=== PATIENT | female | born 1945 | race Caucasian/White ===

== ENCOUNTER → 2017-03-15 | Outpatient (CLI) | payer MEDICARE ==
[~2017-03-15] MED LIST: CYCL5TAB PO; DARV PO; [UNRECOGNIZED DRUG - OTHER]
--- NOTE | 2017-03-21 11:19 | RSPPFT ---
DATE OF PROCEDURE: 03/15/17 COMMENTS: VOLUMES DYNAMIC: FVC and FEV1 normal. STATIC: RV, TLC and FRC normal. FLOWS: FEV1% mildly reduced; FEF 25-75 moderately reduced. DIFFUSION: Normal. FLOW VOLUME LOOP: Pattern of variable intrathracic airways obstruction. IMPRESSION: Mild obstructive ventilatory defect with no reduction in diffusion and no significant hyperinflation. Airways resistance is increased but there is minimal change post-bronchodilator.
== END ==
LOC: PHRSP 08:14
PROVIDERS: ATTEND Internal Medicine
DX: J44.9 Chronic obstructive pulmonary disease, unspecified (principal)
CPT/HCPCS: 94060; 94620; 94726; 94729

== ENCOUNTER 2017-04-07 07:44 | Day surgery (SDC) | payer MEDICARE ==
[~2017-04-07] VITALS: Ht 160 cm; Wt 63.6 kg
[2017-04-07] VITALS (8 sets, daily range): BP systolic 100–143; BP diastolic 51–82; PULSE 67–92; RESP 16–20; TEMP 98.1–98.4; O2SAT 91–97
[2017-04-07] MEDS ORDERED: VERA120T3 PO (08:05)
[2017-04-07] MEDS ORDERED: ATOR40TA16 PO (08:05)
[2017-04-07] MEDS ORDERED: DICL75TA PO (08:05)
[2017-04-07] MEDS ORDERED: LISI10TA PO (08:05)
[2017-04-07] MEDS ORDERED: SODIUM CHLOR 0.9% 1000 ML IV SCH (08:15)
[2017-04-07] MEDS ORDERED: LIDOCAINE 1%/EPINEPHrine 1:100,000 SOLN 20 ML VIAL ONE (09:00)
[2017-04-07] MEDS ORDERED: MIDAZOLAM HCL 2 MG/2 ML VIAL ONE (09:21)
--- NOTE | 2017-04-07 10:42 | PD.RAD ---
Post CT Procedure Prog Note Pre Procedure Diagnosis: (1) Pulmonary nodule, left Post Procedure Diagnosis: (1) Pulmonary nodule, left Procedure Date: Apr 07, 2017 Supervising Radiologist: Waqas Chu Anesthesia: Local, Analgesia, Conscious Sedation Plan of Activity Patient to Unit: R[facility]U Patient Condition: Good See PACS Report for procedural detail/treatment Biopsy Imaging Guidance: CT Side: Left Biopsy Procedure: Lung Specimen: Core Biopsy Findings: Single 20 gauge core. Touch prep in room showed cells present. Due to difficult access, only single sample placed in formalin for further eval. Waqas Chu MD Apr 07, 2017 10:42
[2017-04-07] MEDS ORDERED: oxyCODONE/ACETAMINOPHEN 5 MG/325 MG TAB PO PRN (10:45)
--- NOTE | 2017-04-07 11:32 | RADRPT ---
EXAM DATE/TIME: 04/07/2017 10:48 [facility] COMPARISON: No previous studies available for comparison. INDICATIONS : Post left lung biopsy MEDICAL HISTORY : None. SURGICAL HISTORY : None. ENCOUNTER: Initial ACUITY: 1 day PAIN SCORE: 6/10 LOCATION: chest FINDINGS: A single frontal expiratory view of the chest was performed. There is no evidence of pneumothorax fo llowing left-sided CT guided biopsy. Nodular opacity remains evident in the left upper lobe. Right lung is clear. Heart and mediastinal structures are unremarkable. CONCLUSION: No evidence of pneumothorax status post left lung biopsy. Gaudencio Ruiz MD on April 07, 2017 at 11:18 Board Certified Radiologist. This report was verified electronically.
--- NOTE | 2017-04-07 13:43 | RADRPT ---
EXAM DATE/TIME: 04/07/2017 12:54 [facility] COMPARISON: No previous studies available for comparison. INDICATIONS : Post left lung biopsy. MEDICAL HISTORY : None. SURGICAL HISTORY : None. ENCOUNTER: Initial ACUITY: 1 day PAIN SCORE: 1/10 LOCATION: Left chest FINDINGS: A single view of the chest demonstrates the lungs to be symmetrically aerated with the recently biops ied nodule in the left upper lung adjacent to the aortic arch. No pneumothorax. CONCLUSION: 1. No pneumothorax post biopsy. 2. Pulmonary nodule left upper lobe adjacent to the aortic arch. Waqas Chu MD on April 07, 2017 at 13:37 Board Certified Radiologist. This report was verified electronically.
--- NOTE | 2017-04-07 15:38 | RADRPT ---
EXAM DATE/TIME: 04/07/2017 09:52 [facility] COMPARISON: No previous studies available for comparison. INDICATIONS : Left lung mass. SEDATION TIME: 30 minutes BIOPSY SITE: Left chest MEDICATION(S): 1.) 3 mg midazolam (Versed) IV 2.) 150 mcg fentanyl (Sublimaze) IV DEVICE(S): 1.) 18 gauge Sims blunt needle 10cm 2.) 20 gauge Temno core biopsy needle 20cm MEDICAL HISTORY : Hypertension. Chronic obstructive pulmonary disease. SURGICAL HISTORY : Hysterectomy. ENCOUNTER: Initial ACUITY: 1 day PAIN SCORE: 0/10 LOCATION: Left chest A total of one core specimen(s) were obtained and sent to the laboratory for pathologic evaluation. PROCEDURE: 1. CT guided lung biopsy. 2. Conscious sedation with continuous EKG and oximetry monitoring. Prior to the procedure informed consent was obtained. Any appropriate prior imaging studies were rev iewed. Using automated exposure control and adjustment of the mA and/or kV according to patient size, radiation dose was kept as low as reasonably achievable to obtain optimal diagnostic quality images. DICOM format image data is available electronically for review and comparison. The site was prepped in a sterile fashion. Full sterile technique was used, including cap, mask, zara rile gloves and gown and a large sterile sheet. Hand hygiene and 2% chlorhexidine and/or betadine/al cohol prep was utilized per protocol for cutaneous antisepsis. The skin and subcutaneous tissues wer e infiltrated with local anesthetic solution. With CT guidance the previously identified target was localized. 18 gauge Sims blunt needle was ad vanced to the lesion mentioned. Biopsy was performed using the prescribed needle as above. Touch pre p was performed on the sample in the CT room with the [employer] in attendance. Adequate hemostasis was obtained with compression at the puncture site. Follow-up CT scan reveals no pneumothorax. Conscious sedation was performed with the prescribed dosages and duration as above in the presence of an independent trained radiology nurse to assist in the monitoring of the patient. EKG and oximetry remained stable throughout the procedure. The patient tolerated the procedure well and there were no complications. The patient was sent to Radiology Outpatient Unit in stable condition. CONCLUSION: Uncomplicated CT guided biopsy. Waqas Chu MD on April 07, 2017 at 15:24 Board Certified Radiologist. This report was verified electronically.
== END 2017-04-07 14:36 | disposition home or self-care (01) ==
LOC: HRAD 07:44 → HRIP 07:47 → HRAD 14:36
PROVIDERS: ATTEND Internal Medicine
DX: R91.1 Solitary pulmonary nodule (principal); J44.9 Chronic obstructive pulmonary disease, unspecified; I10 Essential (primary) hypertension; F17.200 Nicotine dependence, unspecified, uncomplicated
CPT/HCPCS: 32405; 71010; 77012; 88305; 88333; 88341; 88342; J2250; J3010; J7030

== ENCOUNTER → 2017-04-29 | Outpatient (CLI) | payer MEDICARE ==
[~2017-04-29] MED LIST changes: +ATOR40TA16 PO; -CYCL5TAB PO; -DARV PO; +DICL75TA PO; +LISI10TA PO; +VERA120T3 PO; -[UNRECOGNIZED DRUG - OTHER]
[2017-04-29 14:06] LABS: HEMATOCRIT 34.3 % (35.0-46.0); HEMOGLOBIN 11.6 GM/DL (11.6-15.3); MEAN CELL VOLUME 95.3 FL (80.0-100.0); MEAN CORPUSCULAR HEMOGLOBIN 32.3 PG (27.0-34.0); MEAN CORPUSCULAR HGB CONC 33.9 % (32.0-36.0); MEAN PLATELET VOLUME 9.7 FL (7.0-11.0); PLATELET COUNT 233 TH/MM3 (150-450); RED CELL DISTRIBUTION WIDTH 13.6 % (11.6-17.2); WHITE BLOOD COUNT 9.1 TH/MM3 (4.0-11.0)
[2017-04-29 14:19] LABS: INTERNATIONAL NORMALIZED RATIO 0.9 RATIO; PROTHROMBIN TIME - PATIENT 9.6 SEC (9.8-11.6)
[2017-04-29 14:30] LABS: BICARBONATE 23.8 MEQ/L (21.0-32.0); CALCIUM 8.8 MG/DL (8.5-10.1); CREATININE 1.03 MG/DL (0.50-1.00)
--- NOTE | 2017-04-30 12:36 | EKG ---
Date Performed: 04/29/2017 Time Performed: 13:04:56 PTAGE: 71 years EKG: Sinus rhythm Since previous tracing, no significant change noted Normal ECG PREVIOUS TRACING : 01/15/2004 08.30 DOCTOR: Temo Vasques Interpretating Date/Time 04/30/2017 12:35:39
== END ==
LOC: CPRE 12:30
PROVIDERS: ATTEND Internal Medicine
DX: Z01.812 Encounter for preprocedural laboratory examination (principal); Z01.810 Encounter for preprocedural cardiovascular examination; R91.1 Solitary pulmonary nodule
CPT/HCPCS: 36415; 80048; 85027; 85610; 85730; 93005

== ENCOUNTER 2017-05-03 12:33 | Day surgery (SDC) | payer MEDICARE ==
--- NOTE | 2017-04-28 11:15 | MB ---
cc: RACQUEL FORRESTER D.O., R. STEVEN DATE OF CONSULTATION: 04/28/2017 REASON FOR CONSULTATION Bronchoscopy scheduled for next Tuesday. HISTORY OF PRESENT ILLNESS Ms. Jovel is a 71-year-old white female whom I saw in February with a new nodule that was identified during an emergency room visit for neck pain. Subsequently, a biopsy in March revealed adenocarcinoma and a followup PET CT revealed uptake in the nodule itself in the lung but also in the left paratracheal region highly suspicious for metastatic disease. She had pulmonary functions which revealed mild airways obstruction. She has been a smoker most of her adult life, was smoking about a half-a-pack per day when I met her and now is smoking only occasionally. I saw her back in the office today to discuss an ultrasound-guided biopsy of that paratracheal lymph node and she is agreeable to proceed. Currently having no symptoms referable to this. No unusual cough. No chest pain. No hemoptysis and no shortness of breath. PAST MEDICAL HISTORY 1. Hypertension. 2. Prior hysterectomy. 3. Lumbosacral spine surgery. No prior cardiovascular history or history of stroke. ALLERGIES LEVAQUIN AND IBUPROFEN. MEDICATIONS 1. Verapamil. 2. A statin. 3. Digoxin. 4. Lisinopril. FAMILY HISTORY Father of alcoholism. Mother is alive at 89. Three sisters one of whom has heart disease, a son who has heart disease. Three daughters in good health. SOCIAL HISTORY living with her of 48 years. She has been in the [employer] business for over 50 years. She has about 50 pack-year smoking history. Drinks wine daily, a glass or two. Three cats at home and a dog. REVIEW OF SYSTEMS Review of systems otherwise negative. PHYSICAL EXAMINATION VITAL SIGNS: Temperature is 97, 130/60, pulse 86, RR 18, sat 96% on room air. HEENT: Sclerae are anicteric. Pharynx is clear. NECK: She has no adenopathy in the neck or supraclavicular region. CHEST: Her chest is entirely clear. No wheezes or rales. No congestion. HEART: Regular rhythm. No harsh murmur. No peripheral edema or cyanosis. ASSESSMENT Ms. Jovel has a left upper lobe adenocarcinoma diagnosed by needle biopsy but also has a positive lymph node on PET scan in the left paratracheal region suspicious for metastatic disease. I have reviewed bronchoscopy with EBUS with her and explained the rationale and why it is important to try to see if this lymph node contains malignant cells. I have described this procedure in simple terms so that she understands what it involves. We also discussed potential for complications including although not limited to anesthetic complications, bleeding or pneumothorax. There is certainly also the possibility that the test will not provide definitive information and additional studies might be needed. We also discussed the possibility of second opinion, she had raised that on a former visit but at this point she would like to proceed here locally based on the information discussed above. Further diagnostic and/or therapeutic intervention will depend on results of this bronchoscopy. R. MD AURELIA Ferreira/GETACHEW /10:31 AM /10:42 AM
[~2017-05-03] VITALS: Ht 160 cm; Wt 62.3 kg
[~2017-05-03 12:33] MED LIST changes: +GLYCOPYRROLATE 1 MG/5 ML SYRINGE IV PUSH ONE; +LIDOCAINE HCL 1% PF 5 ML SYRINGE OTHER ONE; +NEOSTIGMINE 5 MG/5 ML SYRINGE IV PUSH ONE; +ONDANSETRON HCL 4 MG/2 ML VIAL IV ONE; +PHENYLEPH/NS 1000 MCG/10 ML SYR IV ONE; +PROPOFOL 200 MG/20 ML AMP IV ONE; +ROCURONIUM INJ 50 MG/5 ML SYRINGE IV PUSH ONE; +SUCCINYLCHOLINE CHLORIDE 100 MG/5 ML SYRINGE IV PUSH ONE
[2017-05-03 12:53] VITALS: BP 120/66; PULSE 95; RESP 20; TEMP 98.9; O2SAT 95
[2017-05-03] MEDS ORDERED: RESP: ALBUTEROL CONC 2.5 MG/0.5 ML NEB ONE (14:31)
[2017-05-03] MEDS ORDERED: RESP: ALBUTEROL 2.5 MG/IPRATROPIUM 0.5 MG NEB (PRN) NEB (16:45)
[2017-05-03 17:08] VITALS: TEMP 98.1
[2017-05-03 17:10] VITALS: BP 137/66; PULSE 95; RESP 18; O2SAT 95
[2017-05-03] MEDS ORDERED: SODIUM CHLORIDE 0.9% 1000 ML IV SCH (17:15)
[2017-05-03] MEDS ORDERED: DO NOT ADM ANY ANTICOAGULANT DRUGS PRN (17:15)
[2017-05-03 17:40] VITALS: BP 114/66; PULSE 89; RESP 18; O2SAT 93
--- NOTE | 2017-05-03 19:14 | MP ---
cc: BRITTA HALE DATE OF SURGERY 05/03/2017 PROCEDURE Bronchoscopy. INDICATION Lung cancer, possible mediastinal lymph node metastasis. After informed consent was obtained, the patient underwent diagnostic bronchoscopy with general anesthesia. DETAILS Examination of the trachea and mainstem bronchi was normal. She previously had needle aspiration of the left upper lobe lesion which was malignant so no further peripheral inspection was done. Utilizing ultrasound guidance left paratracheal area was identified and a single enlarged lymph node was seen. Four transtracheal passes were made into the lesion and submitted for cytology. There was minimal bleeding. She tolerated the procedure well without apparent complication. She is being transferred back to recovery. R. MD AURELIA Ferreira/KK /4:26 PM /6:50 PM
== END 2017-05-03 18:05 | disposition home or self-care (01) ==
LOC: HROP 12:33 → HRIP 12:34 → HROP 18:05
PROVIDERS: ATTEND Internal Medicine
DX: C34.12 Malignant neoplasm of upper lobe, left bronchus or lung (principal); I10 Essential (primary) hypertension; Z87.891 Personal history of nicotine dependence; Z90.710 Acquired absence of both cervix and uterus
CPT/HCPCS: 00520; 31653; 88172; 88173; 94664; J0330; J2370; J2405; J2710; J3010; J7611

== ENCOUNTER 2017-06-02 06:09 | Day surgery (SDC) | payer MEDICARE ==
[~2017-06-02] VITALS: Ht 160 cm; Wt 62.3 kg
[~2017-06-02 06:09] MED LIST changes: +ATOR20TA15 PO; +CEPH-460 PO; +EXTR500C PO; -GLYCOPYRROLATE 1 MG/5 ML SYRINGE IV PUSH ONE; +IBUP-232 PO; -LIDOCAINE HCL 1% PF 5 ML SYRINGE OTHER ONE; +LISI2.5T3 PO; -NEOSTIGMINE 5 MG/5 ML SYRINGE IV PUSH ONE; -ONDANSETRON HCL 4 MG/2 ML VIAL IV ONE; -PHENYLEPH/NS 1000 MCG/10 ML SYR IV ONE; -PROPOFOL 200 MG/20 ML AMP IV ONE; -ROCURONIUM INJ 50 MG/5 ML SYRINGE IV PUSH ONE; -SUCCINYLCHOLINE CHLORIDE 100 MG/5 ML SYRINGE IV PUSH ONE
[2017-06-02 06:52] VITALS: BP 145/72; PULSE 80; RESP 20; TEMP 98.3; O2SAT 95
[2017-06-02] MEDS ORDERED: SODIUM CHLORIDE 0.9% 1000 ML IV SCH (07:00)
[2017-06-02] MEDS ORDERED: MUPIROCIN 2% OINT 1 APPLIC/GM SYR EACH NARE SCH (07:00)
[2017-06-02] MEDS ORDERED: VANCOMYCIN 1000 MG/NS 250 ML - implanted port/tunneled catheter IV SCH ×2 (07:00)
[2017-06-02] MEDS ORDERED: CHLORHEXIDINE GLUCONATE 2 % 1 PACK (2 CLOTHS) TOPICAL SCH (07:00)
[2017-06-02] MEDS ORDERED: ceFAZolin 2 GM PREMIX 50 ML - implanted port/tunneled catheter insertion IV SCH (07:00)
[2017-06-02] MEDS ORDERED: POVIDONE IODINE 5% (ANTISEPSIS KIT) 4 APPLICATIONS EACH NARE SCH (07:00)
[2017-06-02 07:19] LABS: AUTOMATED NEUTROPHIL # 5.8 TH/MM3 (1.8-7.7); BASOPHIL % 0.6 % (0.0-2.0); EOSINOPHIL # 0.1 TH/MM3 (0-0.4); EOSINOPHIL % 1.6 % (0.0-4.0); HEMATOCRIT 35.6 % (35.0-46.0); HEMOGLOBIN 12.1 GM/DL (11.6-15.3); LYMPH % 23.2 % (9.0-44.0); LYMPHOCYTE # 1.9 TH/MM3 (1.0-4.8); MEAN CELL VOLUME 93.3 FL (80.0-100.0); MEAN CORPUSCULAR HEMOGLOBIN 31.7 PG (27.0-34.0); MEAN PLATELET VOLUME 9.9 FL (7.0-11.0); MONOCYTE # 0.4 TH/MM3 (0-0.9); NEUT % 69.6 % (16.0-70.0); PLATELET COUNT 205 TH/MM3 (150-450); RED BLOOD COUNT 3.81 MIL/MM3 (4.00-5.30); RED CELL DISTRIBUTION WIDTH 12.9 % (11.6-17.2); WHITE BLOOD COUNT 8.3 TH/MM3 (4.0-11.0)
[2017-06-02 07:29] LABS: PROTHROMBIN TIME - PATIENT 9.8 SEC (9.8-11.6)
[2017-06-02] MEDS ORDERED: MIDAZOLAM HCL 2 MG/2 ML VIAL ONE (08:43)
[2017-06-02] MEDS ORDERED: fentaNYL CITRATE 250 MCG/5 ML AMP ONE (08:43)
[2017-06-02 09:40] VITALS: BP 117/56; PULSE 73; RESP 20; TEMP 97.9; O2SAT 94
[2017-06-02 09:55] VITALS: BP 118/59; PULSE 70; RESP 20; O2SAT 96
--- NOTE | 2017-06-02 10:10 | RADRPT ---
EXAM DATE/TIME: 06/02/2017 08:42 [facility] COMPARISON: No previous studies available for comparison. INDICATIONS : Patient with left lung cancer in need of Csxkb-o-Mlak placement. MEDICAL HISTORY : HTN, Lung mass, Hiatal hernia, Arthritis SURGICAL HISTORY : Bronchoscopy, Lung biopsy, Lymph node biopsy, Spine surgery ENCOUNTER: Initial ACUITY: 1 month PAIN SCORE: 0/10 FLUORO TIME: 0.5 minutes IMAGE SERIES: 1 SEDATION TIME: 30 minutes ACCESS: Right internal jugular vein SEDATION: 1.) 2.5 mg midazolam (Versed) IV 2.) 125 mcg fentanyl (Sublimaze) IV Prophylactic antibiotics were administered with appropriate pre-procedure timing. Vancomycin within 2 hours of procedure, Ancef (or alternative) within 1 hour of procedure. DEVICE: 1. 8 [place] single lumen Xcela plus port PROCEDURE : 1. Continuous pulse oximetry and EKG monitoring. 2. Intravenous conscious sedation. 3. Ultrasound guidance for venous access. 4. Fluoroscopic guided implantable central venous port placement. The patient was placed supine. The neck was prepped in sterile fashion. Full sterile technique was u sed, including cap, mask, sterile gloves and gown, and a large sterile sheet. Hand hygiene and 2% ch lorhexidine Betadine was utilized per protocol for cutaneous antisepsis with appropriate dry time for site. Sterile gel and sterile probe cover were utilized for ultrasound guidance. The skin and sub cutaneous tissues were infiltrated with local anesthetic solution. Under direct ultrasound guidance, central venous access was accomplished in the targeted vessel. The ultrasound images depicting access guidance were stored and saved to PACS for permanent record. A s ubcutaneous pocket was created using blunt dissection. The port was introduced to the pocket. The c atheter tubing was fed through a subcutaneous tunnel to the venotomy site. The catheter tubing was c ut to a suitable length and then was introduced through a valved Peel-Away sheath and positioned with catheter tubing tip at the cavo-atrial junction level. The pocket incision was closed with subcutic ular Vicryl suture. Steri-Strips were applied. The port was flushed and locked with heparin solutio n per protocol. Sterile dressing was applied to the site. The patient tolerated the procedure well. Conscious sedation was performed with the prescribed dosages and duration as above in the presence of an independent trained radiology nurse to assist in the monitoring of the patient. EKG and oximetry remained stable throughout the procedure. The patient tolerated the procedure well and there were no complications. The patient was sent to post anesthesia recovery in stable condition. CONCLUSION: Uncomplicated ultrasound and fluoroscopic guided implanted central venous port catheter placement as described in detail above. An 8 [place] Power port was placed. Alcides Taveras MD on June 02, 2017 at 10:08 Board Certified Radiologist. This report was verified electronically.
[2017-06-02 10:25] VITALS: BP 93/50; PULSE 69; RESP 20; O2SAT 93
[2017-06-02 10:55] VITALS: BP 93/49; PULSE 68; RESP 20; O2SAT 95
--- NOTE | 2017-06-02 11:11 | PD.RAD ---
Post Procedure Progress Note Pre Procedure Diagnosis: (1) Lung cancer Post Procedure Diagnosis: (1) Lung cancer Procedure Date: Jun 02, 2017 Supervising Radiologist: Alcides Taveras Proceduralist/Assist: RT Lázaro(R)() Estimated blood loss: none Anesthesia: Local, Conscious Sedation Plan of Activity Patient to Unit: ROPU Patient Condition: Good See PACS Report for procedural detail/treatment Central Venous Access Device Procedure 1 Right Internal Jugular Infusaport Placement single lumen Argentine: 8 Alcides Taveras MD Jun 02, 2017 11:11
[2017-06-02] MEDS ORDERED: SODIUM CHLORIDE 0.9% FLUSH 10 ML FLUSH IVF PRN (11:15)
[2017-06-02 11:25] VITALS: BP 91/51; PULSE 76; RESP 20; O2SAT 95
== END 2017-06-02 11:45 | disposition home or self-care (01) ==
LOC: HROP 06:09 → HRIP 06:12 → HROP 11:45
PROVIDERS: ATTEND Internal Medicine
DX: Z45.2 Encounter for adjustment and management of vascular access device (principal); C34.92 Malignant neoplasm of unspecified part of left bronchus or lung; I10 Essential (primary) hypertension; K44.9 Diaphragmatic hernia without obstruction or gangrene
CPT/HCPCS: 36561; 76937; 77001; 85025; 85610; 85730; 99152; 99153; C1788; J0690; J1642; J2250; J3010; J3370; J7030; J7050